=== PATIENT | female | born 1970 | race Caucasian/White ===

== ENCOUNTER → 2017-01-04 | Outpatient (CLI) | payer OTHER | END | disposition disaster alternative care site (69) | LOC: GBCOE 12-24 09:30 | DX: R92.8 Other abnormal and inconclusive findings on diagnostic imaging of breast (principal) | CPT/HCPCS: G0206; G0279 ==

== ENCOUNTER 2017-02-17 05:56 | Emergency (ER) | payer OTHER ==
--- NOTE | ~2017-02-17 | ER ---
PATIENT'S NAME: [facility] AGE: 46 Y [address] ROOM: [place], [place] [address] LOCATION: ED ADMIT DATE: 02/17/2017 ER/Outpatient Report DISCHARGE DATE: 02/17/2017 FAMILY PHYSICIAN: Esmer Jacome MD ATTENDING PHYSICIAN: Aftab Zamudio CHIEF COMPLAINT: Left side pain. HISTORY OF PRESENT ILLNESS: The patient presents with left side pain. It started around 1:00 a.m. this morning. It has been associated with some vomiting. She has never had anything like this in this location, but this type of pain feels very similar to prior kidney stones on the right side. She denies any urinary tract symptoms including frequency, urgency, or burning. She denies any other symptoms of infection such as fever, cough, difficulty breathing, skin rashes, or other concerns. PAST MEDICAL HISTORY: Noted on the record and reviewed by me. SOCIAL HISTORY: Noted on the record and reviewed by me. MEDICATIONS: Noted on the record and reviewed by me. ALLERGIES: NOTED ON THE RECORD AND REVIEWED BY ME. REVIEW OF SYSTEMS: All systems reviewed and negative except as noted in the HPI. PHYSICAL EXAMINATION: VITAL SIGNS: Blood pressure is 143/65, pulse 62, respiratory rate 14, temperature 98.6, SpO2 is 96% on room air. Pain is rated 8/10. GENERAL: An age appropriate female, in exquisite discomfort, agitated in the exam room with no obvious distress. NEUROLOGIC: Awake and alert. GCS 15. No focal deficits. No asymmetry. HEENT: Normocephalic, atraumatic. Eyes are PERRL. Oropharynx is clear. NECK: Supple. Trachea is midline. CHEST/HEART: Regular rate and rhythm with no murmurs. LUNGS: Clear to auscultation bilaterally. No rhonchi, wheezes, or rales. ABDOMEN: Soft, nontender, and nondistended. No rebound, guarding, or masses. BACK: Normal to inspection and palpation with no CVA tenderness. No spinal PATIENT'S NAME: [facility] AGE: 46 Y [address] ROOM: [place], [place] [address] LOCATION: ED ADMIT DATE: 02/17/2017 ER/Outpatient Report DISCHARGE DATE: 02/17/2017 FAMILY PHYSICIAN: Esmer Jacome MD ATTENDING PHYSICIAN: Aftab Zamudio tenderness. EXTREMITIES: Warm and well perfused with no deformities or edema. SKIN: Skin is clean and intact. LABORATORY DATA AND X-RAYS: CT of the abdomen reveals a 1.8 mm left moderately obstructing stone at the proximal ureter. The urinalysis is nondiagnostic with 50-100 wbc's, 50-100 rbc's, 2-5 epithelial cells, but no bacteria. Culture pending. CBC without appreciable abnormalities. CMS with a potassium of 3.4, CO2 is 20, otherwise no hepatobiliary or renal abnormalities. HCG is negative. IMPRESSION: Left ureterolithiasis. EMERGENCY DEPARTMENT COURSE: The patient was seen and evaluated as above. She was given a liter of fluid and oral rehydration. She was given Zofran and Toradol for pain. She did not require any further pain medications while in the ER. She was feeling much better. KUB was obtained, was nondiagnostic, and thus a CT scan of the abdomen was obtained, which did diagnose left kidney stone. No evidence of infection or impending renal failure. With the stone size, it will likely pass spontaneously. The patient was discharged home with hydrocodone and Flomax. Follow up with PCP or Urology as needed. AFTAB ZAMUDIO MD JH/modl /[id number] d: 02/17/17 1214 t: 02/28/17 0700, OUTPATIENT REPORT
[2017-02-17 06:44] LABS: ALBUMIN 3.5 gm/dL (3.5-5.0); ALK PHOS 47 IU/L (33-138); ALT 27 IU/L (12-78); ANION GAP 14.4 (10.0-19.0); AST 21 IU/L (10-40); BLOOD UREA NITROGEN 11 mg/dL (6-24); CALCIUM 8.6 mg/dL (8.5-10.5); CHLORIDE 107 mMol/L (96-110); CO2 20 mMol/L (22-32); ESTIMATED GFR (MDRD EQUATION) 60; POTASSIUM 3.4 mMol/L (3.7-5.1); SODIUM 138 mMol/L (135-145); TOTAL BILIRUBIN 0.4 mg/dL (0.0-1.5); TOTAL PROTEIN 7.1 g/dL (6.0-8.4)
[2017-02-17 06:53] LABS: BASOPHIL % 0.5 %; EOSINOPHIL # 0.2 K/uL (0.0-0.5); HEMATOCRIT 34.7 % (33.0-46.0); HEMOGLOBIN 12.3 g/dL (10.0-15.0); IMMATURE GRANULOCYTE % 0.5 %; LYMPHOCYTE # 2.6 K/uL (0.8-4.0); LYMPHOCYTE % 29.6 %; MCH 30.7 pg (27.0-34.0); MCHC 35.4 gm/dL (32.0-36.5); MCV 86.5 fl (83.0-98.0); MONOCYTE # 0.7 K/uL (0.0-1.0); MONOCYTE % 7.8 %; MPV 9.6 fl (9.4-12.4); NEUTROPHIL # (ANC) 5.2 K/uL (1.8-7.8); NEUTROPHIL % 59.6 %; NRBC % 0 /100WBC (0-0.00); PLATELET COUNT 279 K/uL (150-450); RDW-CV 12.1 % (11.9-14.6); WBC 8.6 K/uL (4.0-11.0)
[2017-02-17 06:54] LABS: RBC 4.01 M/uL (3.50-5.50)
[2017-02-17 08:27] LABS: BILIRUBIN URINE NEGATIVE (NEGATIVE); BLOOD URINE 250 /UL (NEGATIVE); GLUCOSE URINE NEGATIVE (NEGATIVE); KETONE URINE 5 mg/dL (NEGATIVE); LEUKOCYTES URINE 100 /UL (NEGATIVE); NITRITE URINE NEGATIVE (NEGATIVE); PROTEIN URINE 100 mg/dL (NEGATIVE); SPEC GRAVITY URINE 1.025 (1.003-1.035); TURBIDITY URINE 2+ (CLEAR); UROBILINOGEN URINE NORMAL (NORMAL)
[2017-02-17 08:28] LABS: COLOR URINE BROWN (YELLOW)
[2017-02-17 08:37] LABS: AMORPHOUS URINE 1+ (NEGATIVE); BACTERIA URINE NEGATIVE (NEGATIVE); MUCUS URINE 1+ (NEGATIVE); RBC URINE 50-100 #/HPF (NEGATIVE); WBC URINE 50-100 #/HPF (NEGATIVE)
== END 2017-02-17 08:51 | disposition disaster alternative care site (69) ==
LOC: GMED 05:56
PROVIDERS: Emergency Medicine
DX: N13.2 Hydronephrosis with renal and ureteral calculous obstruction (principal); F41.9 Anxiety disorder, unspecified; Z91.013 Allergy to seafood; Z79.899 Other long term (current) drug therapy
CPT/HCPCS: J1885; J2405; J7030